=== PATIENT | male | born 1990 | race Two or more races ===

== ENCOUNTER 2018-03-20 10:10 | Emergency (ER) | payer SELFPAY ==
[~2018-03-20] VITALS: Ht 160 cm; Wt 81.2 kg
--- NOTE | 2018-03-20 10:15 | NUR ---
PATIENT BIBRA [id number] FROM WORK STATES RIGHT KNEE PAIN AFTER HITTING IT ON A BLOCK OF CEMENT AND HEART A POP. 12/06 PAIN AT THIS TIME. SKIN INTACT.
[2018-03-20] MEDS ORDERED: HYDROCODONE/APAP 5/325MG 1 EACH TABLET PO ONE (11:00)
[2018-03-20] MEDS ORDERED: HYDROCODONE/APAP 5/325MG 1 EACH TABLET ONE (11:02)
[2018-03-20 12:00] VITALS: BP 142/72
--- NOTE | 2018-03-20 12:13 | NUR ---
Patient discharged to home in stable condition. Written and verbal after care instructions given. Patient verbalizes understanding of instruction.
== END 2018-03-20 12:14 | disposition home or self-care (01) ==
LOC: ER 10:12
DX: S83.8X1A Sprain of other specified parts of right knee, initial encounter (principal); W22.8XXA Striking against or struck by other objects, initial encounter; Y93.89 Activity, other specified; Y92.89 Other specified places as the place of occurrence of the external cause; Y99.0 Civilian activity done for income or pay
CPT/HCPCS: 73562